=== PATIENT | female | born 1970 | race Caucasian/White ===

== ENCOUNTER → 2023-05-09 | Outpatient (CLI) | payer OTHER ==
[~2023-05-09] MED LIST: ALPR.25 PO; Estrace Vagin42.5 GM PV
[2023-05-09 17:04] LABS: Bacterial Vaginosis PCR Negative (NEGATIVE); Candida Group, PCR NOT DETECTED (NOT DETECT); Candida glabrata-krusei, PCR NOT DETECTED (NOT DETECT)
== END ==
LOC: LAB SHORT 13:40
PROVIDERS: Obstetrics & Gynecology
DX: N89.8 Other specified noninflammatory disorders of vagina (principal)
CPT/HCPCS: 87481; 87661; 87801